=== PATIENT | female | born 2000 | race Caucasian/White ===

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

== ENCOUNTER 2020-01-15 16:37 | Emergency (ER) | payer OTHER ==
[2020-01-15 16:43] VITALS: BP 115/70
--- NOTE | 2020-01-15 17:02 | ED Physician Documentation ---
History of Present Illness - Stated complaint Stated Complaint: PX RIGHT SIDE, - Chief complaint Chief Complaint: Abd Pain - History obtained from History obtained from: Patient, Family - Additonal information Additional information: 19-year-old female presents to the emergency department for evaluation of right upper abdominal pain. She reports that it has been intermittent for much of the last few weeks. She is unable to tell me if movement or activity makes it worse. She denies that it gets worse after eating. She has had no nausea or vomiting. Denies melena or hematochezia. She denies any urinary symptoms. She does report concerns about the character of her stool. She states that about a month ago after eating pad tie she had brown stringy threads in her stool. She shows me a picture and I am unclear if this is been sprouts or an other abnormal character to her stool. However she states that for the last few days when she poops she has white mucousy threads in her stool. She denies fevers or weight loss. She denies any recent travel. She denies taking any medications [id number] or prescribed. She has no pertinent past surgical history. She and her family just moved back to the [place] so they do not currently have a primary provider Review of Systems Constitutional: denies: Fever, Chills Cardiac: denies: Chest pain / pressure, Palpitations Respiratory: denies: Dyspnea, Cough GI: reports: Abdominal Pain, Other (mucousy threads in stool). denies: Nausea, Vomiting, Constipation, Diarrhea, Hematemesis, Bloody / black stool : denies: Dysuria, Frequency, Hesitancy Skin: denies: Rash, Lesions Musculoskeletal: denies: Neck pain, Back pain Neurologic: denies: Generalized weakness, Near syncope, Syncope, Seizure, Headache, LOC PD PAST MEDICAL HISTORY - Past Medical History Cardiovascular: None Respiratory: None Endocrine/Autoimmune: None Other Past Medical History: mono - Past Surgical History Past Surgical History: Yes HEENT: Myringotomy (tubes) - Present Medications Home Medications: Ambulatory Orders Medication Instructions Recorded Confirmed Albendazole 400 mg PO ONCE #2 tablet 01/15/20 - Allergies Allergies/Adverse Reactions: Allergies Allergy/AdvReac Type Severity Reaction Status Date / Time No Known Drug Allergies Allergy Verified 01/15/20 16:43 - Social History Does the pt smoke?: No Smoking Status: Never smoker Does the pt drink ETOH?: No Does the pt have substance abuse?: No - Immunizations Immunizations are current?: Yes PD ED PE NORMAL - General General: Alert and oriented X 3, No acute distress, Well developed/nourished - HEENT HEENT: EOMI, Moist mucous membranes - Neck Neck: Supple, no meningeal sign, No adenopathy - Cardiac Cardiac: RRR, No murmur, No gallop, Strong equal pulses - Respiratory Respiratory: No respiratory distress, Clear bilaterally - Abdomen Abdomen: Normal bowel sounds, Soft, Non tender, Non distended, Other (I am unable to elicit any abdominal tenderness with light percussion or deep palpation.) - Derm Derm: Normal color, Warm and dry, No rash - Extremities Extremities: No deformity, No tenderness to palpate, Normal ROM s pain - Neuro Neuro: Alert and oriented X 3, 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, No motor deficit, No sensory deficit Eye Opening: Spontaneous Motor: Obeys Commands Verbal: Oriented GCS Score: 15 Results - Vitals Vitals: Vital Signs - 24 hr 01/15/20 16:41 Temperature 36.7 C Heart Rate 85 Respiratory 16 Rate Blood Pressure 115/70 O2 Saturation 99 Oxygen O2 Source Room air - Labs Labs: Laboratory Tests 01/15/20 01/15/20 01/15/20 17:00 17:10 17:10 WBC 4.8 RBC 4.96 Hgb 14.6 Hct 44.3 MCV 89.3 MCH 29.4 MCHC 33.0 RDW 12.1 Plt Count 256 MPV 10.0 Neut # (Auto) 2.5 Lymph # (Auto) 1.6 [place] # (Auto) 0.6 Eos # (Auto) 0.1 Baso # (Auto) 0.0 Absolute Nucleated RBC 0.00 Nucleated RBC % 0.0 Sodium 138 Potassium 3.6 Chloride 101 Carbon Dioxide 26 Anion Gap 11.0 BUN 8 Creatinine 0.7 Estimated GFR (MDRD) 107 Glucose 101 H Calcium 9.4 Total Bilirubin 1.1 H AST 17 ALT 15 Alkaline Phosphatase 42 Total Protein 8.3 H Albumin 4.9 Globulin 3.4 Albumin/Globulin Ratio 1.4 Lipase 32 Urine Color YELLOW Urine Clarity CLEAR Urine pH 6.5 Ur Specific [place] 1.025 Urine Protein NEGATIVE Urine Glucose (UA) NEGATIVE Urine Ketones NEGATIVE Urine Occult Blood NEGATIVE Urine Nitrite NEGATIVE Urine Bilirubin NEGATIVE Urine Urobilinogen 0.2 (NORMAL) Ur Leukocyte Esterase NEGATIVE Ur Microscopic Review NOT INDICATED Urine Culture Comments NOT INDICATED Urine HCG, Qual NEGATIVE PD MEDICAL DECISION MAKING - ED course Complexity details: reviewed results, d/w patient, d/w family ED course: 19-year-old female presents to the emergency department with chief complaint of intermittent right upper quadrant pain. She is also reporting concerns that she has a mucousy threadlike white spots in her stool and is concerned that she may have intestinal parasites. On full evaluation of her labs she reassuringly has no leukocytosis. Specifically she has no eosinophilia. Her liver and kidney function is normal. There is no Micheal tract infection. At the time of my exam she was pain-free and I was unable to elicit any pain to either deep or light palpation. My suspicion for acute appendicitis is exceedingly low given the duration of symptoms and the exam today taken in conjunction with her laboratory findings I suspect that this young lady may have irritable doubt bowel disease versus and felt to be less likely an inflammatory condition such as Crohn's or colitis. She is very focused on the white thready spots in her stool that she feels may be worms and upon further evaluation I cannot for certain say that they are not intestinal parasites. At this time we will proceed with a one-time dose of albendazole. Patient was encouraged to keep a food and symptom diary to determine when her bloating and pain begins to try and correlate with food. She is also advised to have close follow-up with her primary care doctor. If her symptoms worsen, she has fevers or bloody stools she will return immediately to the emergency department. Departure - Departure Disposition: 01 Home, Self Care Clinical Impression: Stool contents finding, abnormal Abdominal pain Qualifiers: Abdominal location: right lower quadrant Qualified Code(s): R10.31 - Right lower quadrant pain Condition: Stable Record reviewed to determine appropriate education?: Yes Prescriptions: Albendazole 400 mg PO ONCE #2 tablet Comments: [place] your labs today are sent really unremarkable. Your urine kidney and liver function is normal. Right now you do not have pain in your abdomen so I do not think that we need to proceed with CAT scan or ultrasound imaging. I do appreciate the mucousy threads and white spots in your stool. This could be a sign of intestinal parasites though I am not certain by examining the pitcher. However we will proceed with a one-time dose of the albendazole today. If you do have intestinal parasites this is effective at treating them and up to 99% of cases. I do suspect that you may have an irritable bowel syndrome. I would suggest that you keep a food and symptom diary. I would like you to schedule close follow-up with your primary care doctor for further evaluation. If at any point you develop suddenly severe belly pain have black or bloody stools, high fevers or uncontrolled vomiting please return to the emergency department for a second look
[2020-01-15 17:14] LABS: BASOPHILS % (AUTO) 0.4 %; EOSINOPHILS # (AUTO) 0.1 10^3/uL (0.0-0.7); EOSINOPHILS % (AUTO) 1.3 %; HGB - HEMOGLOBIN 14.6 g/dL (12.0-16.0); LYMPHOCYTES # (AUTO) 1.6 10^3/uL (1.5-3.5); LYMPHOCYTES % (AUTO) 34.5 %; MEAN CORPUSCULAR HEMOGLOBIN 29.4 pg (27.0-31.0); MEAN CORPUSCULAR VOLUME 89.3 fL (81.0-99.0); MONOCYTES # (AUTO) 0.6 10^3/uL (0.0-1.0); NEUTROPHILS # (AUTO) 2.5 10^3/uL (1.5-6.6); NEUTROPHILS % (AUTO) 51.6 %; PLT - PLATELET COUNT 256 10^3/uL (130-450); RED BLOOD COUNT 4.96 10^6/uL (4.20-5.40); RED CELL DISTRIBUTION WIDTH 12.1 % (12.0-15.0); WHITE BLOOD COUNT 4.8 x10^3/uL (4.8-10.8)
[2020-01-15 17:33] LABS: ALBUMIN 4.9 g/dL (3.2-5.5); ALBUMIN/GLOBULIN RATIO 1.4 (1.0-2.2); BILIRUBIN,TOTAL 1.1 mg/dL (0.2-1.0); CALCIUM 9.4 mg/dL (8.5-10.3); CREATININE 0.7 mg/dL (0.4-1.0); TOTAL PROTEIN 8.3 g/dL (6.7-8.2)
[2020-01-15 17:40] LABS: BILIRUBIN,URINE NEGATIVE (NEGATIVE); GLUCOSE, URINE (UA) NEGATIVE (NEGATIVE); KETONES,URINE (UA) NEGATIVE (NEGATIVE); LEUKOCYTE ESTERASE, URINE NEGATIVE (NEGATIVE); NITRITE,URINE NEGATIVE (NEGATIVE); OCCULT BLOOD,URINE NEGATIVE (NEGATIVE); PH,URINE 6.5 PH (5.0-7.5); PROTEIN,URINE NEGATIVE (NEGATIVE); UROBILINOGEN,URINE 0.2 (NORMAL) E.U./dL (NORMAL)
[2020-01-15 17:47] LABS: CLARITY,URINE CLEAR (CLEAR); HCG UR QUAL NEGATIVE
== END 2020-01-15 18:58 | disposition home or self-care (01) ==
LOC: ED 16:37
DX: R10.11 Right upper quadrant pain (principal); R19.5 Other fecal abnormalities
CPT/HCPCS: 36415; 80053; 81001; 81003; 81025; 83690; 85025; 87086; 99283; 99284

== ENCOUNTER 2020-03-23 07:01 | Outpatient (CLI) | payer OTHER ==
--- NOTE | 2020-03-23 12:34 | Ultrasound Report ---
PROCEDURE: Abdomen Complete INDICATIONS: ABDOMINAL PAIN TECHNIQUE: Real-time scanning was performed of the abdominal and retroperitoneal organs, with image documentatio n. COMPARISON: None. FINDINGS: Liver: Liver is normal in size and homogeneous in echotexture, mildly hyperechoic consistent with fa tty infiltration. Gallbladder: The gallbladder appears normal Biliary ducts: Intrahepatic bile ducts are non-dilated. Extrahepatic bile duct caliber measures 4.7 mm. Normal is 6-7 mm or less in diameter, or 10 mm or less post-cholecystectomy. Pancreas: Visualized portions of the pancreas are sonographically normal. Spleen: Spleen is normal in size and homogeneous in echotexture. Kidneys: Kidneys are normal in size and echotexture. Right kidney measures 11.0 cm long; left kidne y measures 11.4 cm long. No hydronephrosis or nephrolithiasis. No solid masses. Aorta: Visualized aorta is normal in caliber at less than 3 cm. Iliacs: Proximal common iliac arteries are normal in caliber at less than 2.5 cm. IVC: Intrahepatic inferior vena cava is patent. Miscellaneous: No free abdominal fluid. IMPRESSION: Mild fatty infiltration throughout the liver. No sign of hepatic mass or biliary distention. No sign of hydronephrosis or nephrolithiasis. The gallbladder appears free of stone or gallbladder wall thick ening. Reviewed by: Joe Carney MD on 03/23/2020 12:33 PM PST Approved by: Joe Carney MD on 03/23/2020 12:33 PM PST Station ID: [id number]
== END 2020-03-23 07:02 | disposition home or self-care (01) ==
LOC: DI 07:01
PROVIDERS: ATTEND Family Medicine
DX: R10.9 Unspecified abdominal pain (principal); K76.0 Fatty (change of) liver, not elsewhere classified
CPT/HCPCS: 76700